=== PATIENT | male | born 1975 | race Two or more races ===

== ENCOUNTER 2024-08-11 15:27 | Emergency (ER) | payer OTHER, MEDICAID ==
[~2024-08-11] VITALS: Ht 167.6 cm; Wt 122.7 kg
[2024-08-11] MEDS ORDERED: MORPHINE SULFATE 4 MG/ML SYR/VIAL IM ONE (15:45)
[2024-08-11] MEDS ORDERED: ONDANSETRON ODT 4 MG TAB PO ONE (15:45)
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
[2024-08-11] MEDS: MORPHINE SULFATE 4 MG/ML SYR/VIAL IV ONE (17:07)
[2024-08-11] MEDS: ONDANSETRON HCL 4 MG/2 ML VIAL IV ONE (17:07)
[2024-08-11 17:13] VITALS: PULSE 85; RESP 12; O2SAT 98
[2024-08-11] MEDS: PROPOFOL 10 MG/ML 20 ML IV ONE (17:46)
[2024-08-11 18:26] VITALS: BP 134/92; PULSE 81; RESP 13; O2SAT 99
[2024-08-11] MEDS ORDERED: IBUP-1455 PO (18:51)
[2024-08-11] MEDS ORDERED: CYCL-837 PO (18:51)
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
--- NOTE | 2024-08-11 19:13 | DVH ---
CLINICAL INDICATION: ELBOW REDUCTION TECHNIQUE: XY L ELBOW 2 VIEW XRAY Comparison: XY L ELBOW 3 VIEW XRAY on DOS: 08/11/24 FINDINGS/IMPRESSION: : Interval reduction of the left elbow joint which is now in anatomic alignment. Tiny osseous density adjacent to the olecranon process on lateral projection which could reflect tiny chip fracture fragment. No elbow joint effusion. Mild soft tissue swelling overlying the posterior elbow.
== END 2024-08-11 19:05 | disposition home or self-care (01) ==
LOC: ER 15:27
DX: S53.195A Other dislocation of left ulnohumeral joint, initial encounter (principal); V89.2XXA Person injured in unspecified motor-vehicle accident, traffic, initial encounter; Y93.89 Activity, other specified; Y92.89 Other specified places as the place of occurrence of the external cause; Y99.8 Other external cause status
CPT/HCPCS: 24600; 73070; 73080; 96374; 96375; 99285; J2270; J2405; J2704